=== PATIENT | female | born 1985 | race Caucasian/White ===

== ENCOUNTER 2024-08-02 17:06 | Emergency (ER) | payer MEDICAID ==
[~2024-08-02] VITALS: Ht 165.1 cm; Wt 73.9 kg
[2024-08-02 17:14] VITALS: BP_SYST 192; PULSE 112; RESP 16; TEMP 97.7; O2SAT 98
[2024-08-02] MEDS: KETOROLAC TROMETHAMINE 60 MG/2 ML VIAL IM ONE (17:57)
[2024-08-02] MEDS ORDERED: ONDA-8 TL (18:44)
[2024-08-02] MEDS: ONDANSETRON 4 MG ODT TAB PO ONE (18:58)
[2024-08-02] MEDS: DIAZEPAM 5 MG TABLET (VALIUM) PO ONE (18:58)
[2024-08-02] MEDS: ACETAMINOPHEN 500 MG TABLET PO ONE (18:58)
[2024-08-02 19:52] LABS: BASOPHILS # (AUTO) 0.1 K/uL (0.0-0.2); HEMOGLOBIN 9.7 g/dL (12.0-16.0); MONOCYTES # (AUTO) 0.6 K/uL (0.0-1.0); RED CELL DISTRIBUTION WIDTH 17.6 % (9.0-15.0)
[2024-08-02 20:05] LABS: BASOPHILS % (AUTO) 0.8 % (0.0-2.0); EOSINOPHILS % (AUTO) 0.2 % (0.0-4.0); HEMATOCRIT 30.8 % (36-48); LYMPHOCYTES # (AUTO) 1.6 K/uL (1.0-5.5); MEAN CORPUSCULAR HEMOGLOBIN 22 pg (27-31); MEAN CORPUSCULAR HGB CONC 32 % (32-36); MEAN CORPUSCULAR VOLUME 71 fL (79.0-98.0); NEUTROPHILS # (AUTO) 9.2 K/uL (1.8-7.7); RED BLOOD CELL COUNT(AUTO) 4.36 MIL/uL (4.2-6.2); WHITE BLOOD COUNT (AUTO) 11.5 K/uL (4.8-10.8)
[2024-08-02 20:22] LABS: ALANINE AMINOTRANSFERASE 10 U/L (12-78); ALBUMIN 2.8 g/dL (3.4-4.8); ANION GAP 6 (5-15); ASPARTATE AMINOTRANSFERASE 14 U/L (10-37); CALCIUM 9.1 mg/dL (8.4-11.0); CARBON DIOXIDE 32 mmol/L (23-29); CHLORIDE 104 mmol/L (98-107); CREATININE 0.67 mg/dL (0.55-1.30); GFR AFRICAN AMERICAN 125 mL/min (>90); GLUCOSE 143 mg/dL (74-106); LIPASE 46 U/L (16-77); POTASSIUM 3.9 mmol/L (3.5-5.1); SODIUM SERUM 142 mmol/L (136-145); TOTAL BILIRUBIN 0.2 mg/dL (0.0-1.0); TOTAL PROTEIN, SERUM 7.2 g/dL (6.4-8.3); UREA NITROGEN, BLOOD 15 mg/dL (8-21)
[2024-08-02 20:32] LABS: BILIRUBIN,DIRECT < 0.1 mg/dL (0.0-0.3)
[2024-08-02 20:37] LABS: GFR NON AFRICAN-AMERICAN 103 mL/min (>90)
[2024-08-02 21:04] VITALS: BP_SYST 190; PULSE 108; RESP 21; TEMP 98.5; O2SAT 99
[2024-08-02 22:06] LABS: PLATELET COUNT (AUTO) 834 K/uL (130-430)
== END 2024-08-02 21:04 | disposition home or self-care (01) ==
LOC: SED 17:06
DX: G62.9 Polyneuropathy, unspecified (principal); D75.838 Other thrombocytosis; M79.605 Pain in left leg; R11.2 Nausea with vomiting, unspecified; E11.9 Type 2 diabetes mellitus without complications; Z79.899 Other long term (current) drug therapy
CPT/HCPCS: 99284; 80076; 80048; 83690; 85025; 84484; 36415; 93005; 81025; 96372; Q0162; J1885

== ENCOUNTER 2024-08-04 13:14 | Emergency (ER) | payer MEDICAID ==
[~2024-08-04] VITALS: Ht 165.1 cm; Wt 73.9 kg
[~2024-08-04 13:14] MED LIST: ONDA-8 TL
[2024-08-04 13:15] VITALS: BP_SYST 164; PULSE 113; RESP 19; TEMP 97.9; O2SAT 95
[2024-08-04] MEDS: ONDANSETRON 4 MG ODT TAB PO ONE (13:49)
[2024-08-04 13:57] LABS: BASOPHILS # (AUTO) 0.1 K/uL (0.0-0.2); EOSINOPHILS % (AUTO) 0.3 % (0.0-4.0); HEMATOCRIT 31.6 % (36-48); HEMOGLOBIN 9.7 g/dL (12.0-16.0); LYMPHOCYTES # (AUTO) 1.4 K/uL (1.0-5.5); LYMPHOCYTES % (AUTO) 14.4 % (20.5-51.5); MEAN CORPUSCULAR HEMOGLOBIN 22 pg (27-31); MEAN CORPUSCULAR HGB CONC 31 % (32-36); MEAN CORPUSCULAR VOLUME 72 fL (79.0-98.0); MONOCYTES # (AUTO) 0.7 K/uL (0.0-1.0); MONOCYTES % (AUTO) 7.3 % (1.7-9.3); NEUTROPHILS # (AUTO) 7.4 K/uL (1.8-7.7); RED BLOOD CELL COUNT(AUTO) 4.42 MIL/uL (4.2-6.2); RED CELL DISTRIBUTION WIDTH 17.1 % (9.0-15.0); WHITE BLOOD COUNT (AUTO) 9.5 K/uL (4.8-10.8)
[2024-08-04 14:09] LABS: SERUM HCG (QUALITATIVE) NEGATIVE (NEGATIVE)
[2024-08-04 14:15] LABS: PROTHROMBIN TIME 10.1 SECS (9.5-12.5)
[2024-08-04 14:17] LABS: PLATELET COUNT (AUTO) 849 K/uL (130-430)
[2024-08-04 14:26] LABS: ALANINE AMINOTRANSFERASE 19 U/L (12-78); ALBUMIN 2.7 g/dL (3.4-4.8); AMYLASE 54 U/L (0-100); ANION GAP 8 (5-15); ASPARTATE AMINOTRANSFERASE 13 U/L (10-37); BILIRUBIN,DIRECT < 0.1 mg/dL (0.0-0.3); CALCIUM 8.8 mg/dL (8.4-11.0); CARBON DIOXIDE 29 mmol/L (23-29); CHLORIDE 105 mmol/L (98-107); CREATININE 0.63 mg/dL (0.55-1.30); GFR AFRICAN AMERICAN 134 mL/min (>90); GLUCOSE 145 mg/dL (74-106); LIPASE 38 U/L (16-77); POTASSIUM 4.3 mmol/L (3.5-5.1); SODIUM SERUM 142 mmol/L (136-145); TOTAL BILIRUBIN 0.2 mg/dL (0.0-1.0); TOTAL PROTEIN, SERUM 7.4 g/dL (6.4-8.3); UREA NITROGEN, BLOOD 13 mg/dL (8-21)
[2024-08-04 14:26] LABS: BILIRUBIN,URINE NEGATIVE (NEGATIVE); BLOOD, URINE 2+ (NEGATIVE); CLARITY/URINE CLEAR (CLEAR); COLOR,URINE YELLOW (YELLOW); GLUCOSE,URINE 2+ (NEGATIVE); KETONES,URINE 2+ (NEGATIVE); LEUKOCYTE ESTERASE ,URINE NEGATIVE (NEGATIVE); NITRITE, URINE NEGATIVE (NEGATIVE); PROTEIN URINE 3+ (NEGATIVE); UROBILINOGEN,URINE 0.2 (0.2-1.0)
[2024-08-04 14:27] LABS: GFR NON AFRICAN-AMERICAN 111 mL/min (>90)
[2024-08-04 14:28] LABS: ACETONE, SERUM NEGATIVE (NEGATIVE)
[2024-08-04 14:56] LABS: BACTERIA,URINE RARE /HPF (None Seen); WBC,URINE 0-3 /HPF (0-3)
[2024-08-04] MEDS ORDERED: ONDA-8 TL (15:23)
[2024-08-04 15:45] VITALS: BP_SYST 150; PULSE 106; RESP 19; TEMP 97.9; O2SAT 95
== END 2024-08-04 15:45 | disposition home or self-care (01) ==
LOC: SED 13:14
DX: A08.4 Viral intestinal infection, unspecified (principal); D75.839 Thrombocytosis, unspecified; R10.33 Periumbilical pain; R11.2 Nausea with vomiting, unspecified; R00.0 Tachycardia, unspecified; E11.9 Type 2 diabetes mellitus without complications; I11.0 Hypertensive heart disease with heart failure; I50.9 Heart failure, unspecified; Z79.899 Other long term (current) drug therapy
CPT/HCPCS: 99284; 74176; 80076; 80048; 81001; 82009; 82150; 84703; 83690; 85025; 85610; 85730; 36415; 81025; 83605; 82397; Q0162; 81000; 81015

== ENCOUNTER 2024-08-18 08:07 | Emergency (ER) | payer MEDICAID ==
[~2024-08-18] VITALS: Ht 165.1 cm; Wt 73.9 kg
[2024-08-18 08:10] VITALS: BP_SYST 190; PULSE 110; RESP 22; TEMP 98.3; O2SAT 98
[2024-08-18 08:45] LABS: BASOPHILS # (AUTO) 0.1 K/uL (0.0-0.2); BASOPHILS % (AUTO) 0.6 % (0.0-2.0); EOSINOPHILS # (AUTO) 0.2 K/uL (0.0-0.4); EOSINOPHILS % (AUTO) 1.8 % (0.0-4.0); HEMATOCRIT 28.9 % (36-48); HEMOGLOBIN 8.9 g/dL (12.0-16.0); LYMPHOCYTES # (AUTO) 2.1 K/uL (1.0-5.5); MEAN CORPUSCULAR HEMOGLOBIN 22 pg (27-31); MEAN CORPUSCULAR HGB CONC 31 % (32-36); MEAN CORPUSCULAR VOLUME 71 fL (79.0-98.0); MONOCYTES % (AUTO) 8.1 % (1.7-9.3); NEUTROPHILS # (AUTO) 9.1 K/uL (1.8-7.7); NEUTROPHILS % (AUTO) 72.5 % (40.0-70.0); PLATELET COUNT (AUTO) 678 K/uL (130-430); RED BLOOD CELL COUNT(AUTO) 4.04 MIL/uL (4.2-6.2); RED CELL DISTRIBUTION WIDTH 17.6 % (9.0-15.0); WHITE BLOOD COUNT (AUTO) 12.5 K/uL (4.8-10.8)
[2024-08-18] MEDS: IBUPROFEN 800 MG TABLET PO ONE (09:04)
[2024-08-18] MEDS: HYDROcodone/ACETAMIN 10-325 MG TAB PO ONE (09:05)
[2024-08-18 09:09] LABS: ALANINE AMINOTRANSFERASE 39 U/L (12-78); ALBUMIN 2.1 g/dL (3.4-4.8); ANION GAP 6 (5-15); ASPARTATE AMINOTRANSFERASE 27 U/L (10-37); CALCIUM 8.8 mg/dL (8.4-11.0); CARBON DIOXIDE 30 mmol/L (23-29); CHLORIDE 104 mmol/L (98-107); CREATINE KINASE, TOTAL 76 U/L (26-192); CREATININE 0.67 mg/dL (0.55-1.30); GFR AFRICAN AMERICAN 125 mL/min (>90); GLUCOSE 290 mg/dL (74-106); POTASSIUM 4.5 mmol/L (3.5-5.1); SODIUM SERUM 140 mmol/L (136-145); TOTAL PROTEIN, SERUM 6.8 g/dL (6.4-8.3); UREA NITROGEN, BLOOD 13 mg/dL (8-21)
[2024-08-18 09:11] LABS: GFR NON AFRICAN-AMERICAN 103 mL/min (>90)
[2024-08-18 09:27] LABS: BILIRUBIN,DIRECT < 0.1 mg/dL (0.0-0.3); TOTAL BILIRUBIN 0.1 mg/dL (0.0-1.0)
[2024-08-18 09:28] LABS: INR 0.8 (0.8-1.2); PROTHROMBIN TIME 8.9 SECS (9.5-12.5)
[2024-08-18] MEDS ORDERED: IBUP-1969 PO (10:14)
[2024-08-18] MEDS ORDERED: HYDR-3927 PO (10:14)
[2024-08-18 10:47] VITALS: BP_SYST 190; PULSE 108; RESP 22; TEMP 98.3; O2SAT 98
== END 2024-08-18 10:44 | disposition home or self-care (01) ==
LOC: SED 08:07
DX: R55 Syncope and collapse (principal); R53.1 Weakness; R42 Dizziness and giddiness; R00.0 Tachycardia, unspecified; E11.40 Type 2 diabetes mellitus with diabetic neuropathy, unspecified; I10 Essential (primary) hypertension; Z79.4 Long term (current) use of insulin
CPT/HCPCS: 36415; 70450-TC; 71045; 80048; 80076; 82550; 83605; 84484; 85025; 85610; 85730; 93005; 99285